=== PATIENT | male | born 1950 | race Caucasian/White ===

== ENCOUNTER → 2019-12-06 | Outpatient (CLI) | payer MEDICARE ==
--- NOTE | 2019-12-07 07:35 | P.STRESS ---
- Stress Test Note Stress Test Results/Findings: Exam Performed: stress echo exercise Exam Date: 12/06/19 Reason for Exam: CP Height: 5 ft 7 in Weight: 89 kg Protocol: STRESS ECHO Stage: 3 Duration of Exercise: 8:00 Resting Heart Rate: 68 Resting Blood Pressure: 144/85 Maximum Achieved Heart Rate: 145 Maximum Achieved Blood Pressure: 197/75 85% PMHR: 130 100% PMHR: 153 METS: 9.5 Technologist Comment: Stress Test Results/Findings: Baseline heart rate 68 beats a minute, Baseline blood pressure 144/85 mmHg Baseline to ECG shows sinus rhythm with outflow tract like PVCs Patient exercised for 8 minutes on a Prashant protocol Peak heart rate 145 beats a minute Normal blood pressure response to exercise There is no ECG evidence for ischemia No exercise induced arrhythmias noted Baseline 2-D echo images showed normal LV systolic function without segmental wall motion abnormalities At peak exercise, there is excellent augmentation of overall RV contractility without developing any wall motion abnormalities @Recovery, no wall motion abnormalities are noted Impression Average exercise capacity without ECG evidence for ischemia or arrhythmia
== END | disposition home or self-care (01) ==
LOC: RADNMMAIN 09:27
PROVIDERS: ATTEND Family Medicine
DX: R07.9 Chest pain, unspecified (principal)
CPT/HCPCS: 93351

== ENCOUNTER → 2019-12-21 | Outpatient (CLI) | payer MEDICARE ==
[2019-12-21 09:40] LABS: African American GFR (CKD) >90 (>60 ml/min/1.73 sqM); Blood Urea Nitrogen 22 mg/dL (9-20); Non-African American GFR(CKD) >90 (>60 ml/min/1.73 sqM)
--- NOTE | 2019-12-21 10:20 | CT ---
EXAMINATION TYPE: CT angio chest DATE OF EXAM: 12/21/2019 COMPARISON: Radiograph 12/18/2019 HISTORY: 69-year-old male with chest pain TECHNIQUE: Contiguous axial scanning of the chest performed with IV Contrast, patient injected with 1 00 mL of Isovue 370. Coronal/sagittal MIP reconstructions performed. CT DLP: 417.1 mGycm Automated exposure control for dose reduction was used. FINDINGS: Heart normal size without pericardial effusion. Scattered LAD and RCA calcifications are present. Borderline ectatic aortic root at 3.6 cm. Upper descending thoracic aorta is ectatic at 3.1 cm. In me tatarsals branching anatomy. Satisfactory opacification of the pulmonary arterial system without evidence for pulmonary embolus. Benign calcified granuloma medial right lower lobe, axial image 88. Mild diffuse bronchial wall thick ening. No consolidation or pleural effusion. Mild bilateral gynecomastia. No thoracic lymphadenopathy by CT size criteria. Visualized upper abdomen suggests some degree of fatty infiltration of the liver. Scattered diverticu losis within the visualized sigmoid flexure of the colon. Bones: Mild to moderate degenerative disc disease throughout the thoracic spine. Scattered endplate s pondylosis midthoracic spine. IMPRESSION: 1. NO EVIDENCE FOR PULMONARY EMBOLUS. 2. BORDERLINE ECTATIC AORTIC ROOT (3.6 CM) AND UPPER DESCENDING THORACIC AORTA (3.1 CM). 3. MILD DIFFUSE BRONCHIAL WALL THICKENING CAN BE SEEN WITH BRONCHITIS OR ASTHMA. 4. SCATTERED LAD AND RCA CALCIFICATIONS AND COLONIC DIVERTICULOSIS.
== END | disposition home or self-care (01) ==
LOC: RADCTMAIN 09:05
PROVIDERS: ATTEND Internal Medicine Critical Care Medicine
DX: I77.810 Thoracic aortic ectasia (principal); J98.4 Other disorders of lung; I25.10 Atherosclerotic heart disease of native coronary artery without angina pectoris
CPT/HCPCS: 82565; 84520; 71275; Q9967